=== PATIENT | male | born 1965 | race Caucasian/White ===

== ENCOUNTER → 2020-10-25 | Outpatient (CLI) | payer MEDICARE | LOC: HEART CORB 14:30 | DX: I49.9 Cardiac arrhythmia, unspecified (principal); I38 Endocarditis, valve unspecified; I27.20 Pulmonary hypertension, unspecified; I37.1 Nonrheumatic pulmonary valve insufficiency | CPT/HCPCS: 93306 ==

== ENCOUNTER → 2020-12-01 | Outpatient (CLI) | payer MEDICARE | LOC: HEART CORB 11:55 | DX: I49.3 Ventricular premature depolarization (principal) ==

== ENCOUNTER → 2022-01-16 | Outpatient (CLI) | payer MEDICARE | LOC: KOH-I 16:00 | DX: N50.89 Other specified disorders of the male genital organs (principal) | CPT/HCPCS: 76870 ==